=== PATIENT | male | born 1950 | race Caucasian/White ===

== ENCOUNTER → 2016-10-18 | Outpatient (CLI) | payer BC ==
[~2016-10-18] MED LIST: ASPIRIN81 M2 PO; BENADRYL25 MG PO; LOPRESSOR25 MG PO; LYRICA25 MG PO; NASACORT AQ16.5 GM BOTH NARES; NORTRIPTYLINE H10 MG PO; ZOLPIDEM TARTRA10 MG PO
== END | disposition home or self-care (01) ==
LOC: CDC 09:24
DX: Z01.810 Encounter for preprocedural cardiovascular examination (principal); G56.02 Carpal tunnel syndrome, left upper limb; M79.642 Pain in left hand; I10 Essential (primary) hypertension
CPT/HCPCS: 93000

== ENCOUNTER → 2018-04-17 | Outpatient (CLI) | payer BC | END | disposition home or self-care (01) | LOC: CDC 09:20 | DX: Z01.810 Encounter for preprocedural cardiovascular examination (principal); S83.211D Bucket-handle tear of medial meniscus, current injury, right knee, subsequent encounter; S83.281D Other tear of lateral meniscus, current injury, right knee, subsequent encounter; M22.41 Chondromalacia patellae, right knee; R94.31 Abnormal electrocardiogram [ECG] [EKG] | CPT/HCPCS: 93000 ==